=== PATIENT | male | born 1975 | race Caucasian/White ===

== ENCOUNTER → 2018-10-25 | Outpatient (CLI) | payer OTHER ==
[~2018-10-25] MED LIST: IOPAMIDOL (ISOVUE 370) 100 ML BTL IV ONE
== END ==
LOC: CIMAGING 10:06
PROVIDERS: ATTEND Internal Medicine Cardiovascular Disease
DX: Q25.1 Coarctation of aorta (principal)
CPT/HCPCS: 71275-PO; Q9967